=== PATIENT | male | born 1960 | race Caucasian/White ===

== ENCOUNTER → 2018-07-23 | Outpatient (CLI) | payer MEDICARE ==
--- NOTE | 2018-07-23 16:18 | US ---
EXAMINATION TYPE: US abdomen complete DATE OF EXAM: 07/23/2018 COMPARISON: NONE CLINICAL HISTORY: 15-year-old male R10.11 RUQ abdominal pain. Intermittent abdomen pain x 1 year, get s worse after eating TECHNIQUE: Multiple sonographic images of the abdomen are obtained. FINDINGS: EXAM MEASUREMENTS: Liver Length: 18.2 cm Gallbladder Wall: 0.2 cm CBD: 0.9 cm Spleen: 10.4 cm Right Kidney: 11.2 x 4.6 x 5.7 cm Left Kidney: 10.7 x 4.9 x 4.8 cm Pancreas: limited by overlying midline bowel gas Liver: enlarged, attenuating, mildly heterogeneous. The secondary limits assessment for focal lesion . Gallbladder: wnl Evidence for sonographic Archuleta's sign: no CBD: dilated Spleen: wnl Right Kidney: wnl Left Kidney: wnl Upper IVC: wnl Abd Aorta: visualized portions wnl, limited by overlying midline bowel gas IMPRESSION: 1. Mild hepatomegaly (18.2 cm) with at least moderate hepatic steatosis. Correlate with LFTs, lipid p rofile, and patient risk factors. 2. No cholelithiasis or evidence for acute cholecystitis. 3. However, the bile duct is dilated at 9 mm. Correlate with alkaline phosphatase and bilirubin level s to exclude biliary obstruction. ERCP or MRCP if indicated.
== END | disposition home or self-care (01) ==
LOC: RADUSWWP 13:50
PROVIDERS: ATTEND Internal Medicine
DX: K76.0 Fatty (change of) liver, not elsewhere classified (principal); K83.8 Other specified diseases of biliary tract
CPT/HCPCS: 76700

== ENCOUNTER 2018-08-16 09:33 | Day surgery (SDC) | payer MEDICARE ==
[2018-08-14 14:51] VITALS: BMI 29.2
[~2018-08-16 09:33] MED LIST: LACTATED RINGERS 1,000 ML IV SCH; LIDOCAINE 1% 20 ML VIAL (10MG/ML) FOR IV START INTRADERMA PRN; MIDAZOLAM (PF) 2 MG/2 ML VIAL IV PRN
[2018-08-16 10:03] VITALS: TEMP 97.3
[2018-08-16] MEDS ORDERED: PROPOFOL 10 MG/ML 20 ML VIAL IV ONE (10:29)
[2018-08-16 11:07] LABS: Albumin 4.3 g/dL (3.5-5.0); Calcium 9.6 mg/dL (8.4-10.2); Potassium 4.4 mmol/L (3.5-5.1); Total Bilirubin 1.3 mg/dL (0.2-1.3); Total Protein 7.6 g/dL (6.3-8.2)
[2018-08-16 11:13] LABS: Basophils % (A) 0 %; Eosinophils # (A) 0.2 k/uL (0-0.7); Eosinophils % (A) 2 %; HCT 48.9 % (39.0-53.0); HGB 16.1 gm/dL (13.0-17.5); Lymphocytes # (A) 2.6 k/uL (1.0-4.8); Lymphocytes % (A) 27 %; MCHC 32.9 g/dL (31.0-37.0); MCV 94.2 fL (80.0-100.0); Mean Platelet Volume 7.9; Monocytes # (A) 0.5 k/uL (0-1.0); Monocytes % (A) 5 %; Neutrophils # (A) 6.3 k/uL (1.3-7.7); Neutrophils % (A) 65 %; Platelet Count 203 k/uL (150-450); RBC 5.19 m/uL (4.30-5.90); RDW 13.9 % (11.5-15.5); WBC 9.7 k/uL (3.8-10.6)
[2018-08-16 12:13] VITALS: PULSE 47; RESP 16
--- NOTE | 2018-08-16 12:14 | P.PCN ---
Date of Procedure: 08/16/18 Description of Procedure: Brief history: The patient is a 50-year-old male with medical history significant for tobacco abuse who is been seen for EGD and colonoscopy for evaluation of abdominal pain. He reports abdominal pain in the periumbilical region and right lower quadrant which has been occurring for approximately one year. The patient had been seen in the office and started on Bentyl which she reports has improved this pain. He also reported constipation and was started on MiraLAX which she has not needed. The patient had previously undergone evaluation with a computed tomography scan of the abdomen which led to an appendectomy. He also had ultrasound which was negative for cholecystitis or cholelithiasis with mild dilation of the CBD at 9 mm and mild hepatomegaly. Procedure performed: Esophagogastroduodenoscopy with cold biopsy Colonoscopy with polypectomy and cold biopsy Estimated blood loss: Minimal. Preoperative diagnosis: Abdominal pain, patient reports last colonoscopy approximately 10 years ago Anesthesia: MAC Procedure: After informed consent was obtained from the patient was brought into the endoscopy unit and IV sedation was administered by anesthesia under continuous monitoring. Initially upper endoscopy was done. The Olympus GF 190 video endoscope was inserted inserted into the mouth and esophagus intubated without any difficulty and was gradually advanced into the stomach and duodenum and carefully examined. The bulb and second part of the duodenum appeared normal, except for a small area of erythema with superficial erosion in the duodenal bulb which was biopsied. The scope was then withdrawn into the stomach adequately insufflated with air and upon careful examination the antrum and body, cardia and fundus appeared normal, except for mild scattered erythema in the antrum and body suggestive of mild gastritis which was biopsied. The scope was then withdrawn into the esophagus. The GE junction was located at 41 cm to the incisors. It appeared regular with no erythema erosions or ulcerations. Rest of the esophagus appeared normal. Patient tolerated the procedure well. At this time the patient continued to remain sedation. Initial digital rectal examination was normal. Olympus CF 190 video colonoscope was then inserted into the rectum and gradually advanced to the cecum without any difficulty. Careful examination was performed as the scope was gradually being withdrawn. The prep was good. The IC valve appeared erythematous, edematous and friable with suspicion for inflammatory bowel disease, biopsies taken. Random biopsies were taken in the right colon, transverse colon, left colon and rectum. Cold snare polypectomy of a 6 mm cecal polyp was performed. Diminutive polyps were found 1 polyp in the splenic flexure, 2 polyps in the descending colon, 2 polyp in the sigmoid colon and 2 polyps in the rectum ranging from 2 mm to 4 mm and retrieved with cold forcep polypectomy. Patient tolerated the procedure well. Impression: 1. Gastritis, biopsied. Duodenal bulb erythema and superficial erosion, biopsied. 2. Erythematous, edematous and friable IC valve with biopsies taken to rule out IBD. 3. Random biopsies of the right colon, transverse colon, left colon and rectum. 4. Snare polypectomy of cecal polyp. 5. Cold forcep polypectomy of polyps in the splenic flexure, descending colon, sigmoid colon Recommendations: Findings of this examination were discussed with the patient as well as his . Await pathology from biopsies. Patient will need follow-up in the gastroenterology clinic. Patient will need repeat colonoscopy in 1-3 years pending findings from pathology. Further recommendations pending findings from biopsies.
[2018-08-16 12:55] VITALS: BP 122/73
[2018-08-16 16:17] LABS: Iron Saturation 24.41 (15.00-50.00)
[2018-08-16 16:43] LABS: Hepatitis A Antibody IgM Non-Reactive (Non-Reactive); Hepatitis B Core IgM Non-Reactive (Non-Reactive)
[2018-08-17 11:14] LABS: ANA Pattern Centromere
[2018-08-17 12:46] LABS: Ceruloplasmin 28.9 mg/dL (20.0-60.0)
[2018-08-17 14:11] LABS: Liver/Kidney Microsome Antibod 1.3 UNITS (<=20)
== END 2018-08-16 13:06 | disposition home or self-care (01) ==
LOC: ORWHC2ENDO 09:33
PROVIDERS: ATTEND Internal Medicine
DX: K29.50 Unspecified chronic gastritis without bleeding (principal); C18.0 Malignant neoplasm of cecum; D12.0 Benign neoplasm of cecum; D12.4 Benign neoplasm of descending colon; D12.3 Benign neoplasm of transverse colon; K63.5 Polyp of colon; F17.210 Nicotine dependence, cigarettes, uncomplicated; Z88.6 Allergy status to analgesic agent; Z79.899 Other long term (current) drug therapy
CPT/HCPCS: 86376; 88305; 80053; 80074; 82728; 82150; 83540; 83550; 83690; 85025; 83516 ×2; 82103; 82390; 82787; 86038; 86039; 45380; 45385; 43239; J2704

== ENCOUNTER → 2018-10-20 | Outpatient (CLI) | payer MEDICARE ==
--- NOTE | 2018-10-24 11:41 | PE ---
Nuclear medicine PET/CT HISTORY: Colon carcinoma, subsequent Patient received 12.1 mCi F-18 FDG intravenously in delayed scanning was performed from the skull bas e to the mid thighs. Localization and attenuation correction CT scan was performed. Patient's prior CT scans are available for comparison. Neck and chest: There is no evident lung mass. No mediastinal, axillary, hilar, or cervical adenopath y. No suspicious hypermetabolic uptake. Minimal inflammatory change noted in the right maxillary sinu s. Abdomen pelvis: Postop changes are present. There is no retroperitoneal mass or adenopathy. No eviden t liver mass. Liver shows possible low-attenuation, consider hepatic steatosis. Atheromatous changes are present within the aorta. Postop changes are noted to the colon. Prostatic calcifications are pre sent. No pelvic adenopathy. Urinary bladder is normal. Osseous structures: Probable benign focus of calcification present anterior lateral to the left ilium anterior aspect, possible old avulsion injury. Degenerative disc changes, facet arthropathy noted in the lumbar spine. IMPRESSION: Postop changes. No suspicious hypermetabolic uptake is evident.
== END ==
LOC: RADPETMAIN 07:52
PROVIDERS: ATTEND Internal Medicine Hematology & Oncology
DX: C18.2 Malignant neoplasm of ascending colon (principal); Z98.890 Other specified postprocedural states
CPT/HCPCS: 78815; A9552

== ENCOUNTER 2019-04-01 23:04 | Inpatient (IN) | payer MEDICARE ==
[2019-04-01] MEDS ORDERED: SODIUM CHLORIDE 0.9% 1,000 ML IV STA ×2 (23:53)
[2019-04-01] MEDS ORDERED: SODIUM CHLORIDE 0.9% 1,000 ML IV ONE (23:53)
[2019-04-01] MEDS ORDERED: ONDANSETRON 4 MG/2 ML VIAL IVP STA (23:53)
[2019-04-01] MEDS ORDERED: PANTOPRAZOLE 40 MG/10 ML VIAL IVP STA (23:53)
[2019-04-01] MEDS ORDERED: MORPHINE SULFATE 4 MG/ML SYRINGE IV STA (23:53)
--- NOTE | 2019-04-02 00:04 | ED ---
Abdominal Pain HPI - General Chief Complaint: Abdominal Pain Stated Complaint: abd pain Time Seen by Provider: 04/01/19 23:20 Source: patient, EMS Mode of arrival: EMS Limitations: no limitations - History of Present Illness Initial Comments: This is a 50-year-old male the ER for evaluation patient resents today for evaluation regards to abdominal pain, except in transfer for evaluation regarding persistent right upper quadrant abdominal pain.,. Medical history significant for recent colon resection secondary to colon cancer as well as appendectomy. Patient still complaining of right-sided pain right upper quadrant pain nausea no vomiting. Symptoms are progressively worsening for last 3 days. Patient has no recent fevers cough or congestion otherwise no recent travel history no family members with similar complaints. No prior history of gallbladder disease no history of pancreatic illness. MD Complaint: abdominal pain -: days(s) (3) Location: RUQ, RLQ Radiation: R flank Migration to: no migration Severity: moderate Severity scale (1-10): 7 Quality: stabbing, aching Consistency: constant Improves With: nothing Worsens With: nothing Associated Symptoms: nausea - Related Data Home Medications Medication Instructions Recorded Confirmed No Known Home Medications 04/01/19 04/01/19 Allergies Allergy/AdvReac Type Severity Reaction Status Date / Time ibuprofen Allergy Rash/Hives Verified 04/01/19 23:21 Review of Systems ROS Statement: Those systems with pertinent positive or pertinent negative responses have been documented in the HPI. ROS Other: All systems not noted in ROS Statement are negative. 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, enlarged liver History of Any Multi-Drug Resistant Organisms: None Reported Past Surgical History: Appendectomy, Orthopedic Surgery Additional Past Surgical History / Comment(s): surgery to remove melanoma, rt shoulder surgery x2 rotator cuff, rt orbit "plastic piece put in ", Past Anesthesia/Blood Transfusion Reactions: No Reported Reaction Past Psychological History: Anxiety, Bipolar Smoking Status: Current every day smoker - Past Family History Father Family Medical History: Diabetes Mellitus Additional Family Medical History / Comment(s): Hx MRSA Mother Family Medical History: Cancer Additional Family Medical History / Comment(s): brain General Exam Limitations: no limitations General appearance: alert, in no apparent distress Head exam: Present: atraumatic, normocephalic, normal inspection Eye exam: Present: normal appearance, EOMI. Absent: scleral icterus, conjunctival injection, periorbital swelling ENT exam: Present: normal exam, mucous membranes moist Neck exam: Present: normal inspection. Absent: tenderness, meningismus, lymphadenopathy Respiratory exam: Present: normal lung sounds bilaterally. Absent: respiratory distress, wheezes, rales, rhonchi, stridor Cardiovascular Exam: Present: regular rate, normal rhythm, normal heart sounds. Absent: systolic murmur, diastolic murmur, rubs, gallop, clicks GI/Abdominal exam: Present: soft, tenderness (Right upper quadrant), normal bowel sounds. Absent: distended, guarding, rebound, rigid Extremities exam: Present: normal inspection, full ROM, normal capillary refill. Absent: tenderness, pedal edema, joint swelling, calf tenderness Back exam: Present: normal inspection Neurological exam: Present: alert, oriented X3, CN II-XII intact Psychiatric exam: Present: normal affect, normal mood Skin exam: Present: warm, dry, intact, normal color. Absent: rash Course Vital Signs 04/01/19 23:18 Temperature 99.1 F Pulse Rate 59 L Respiratory 16 Rate Blood Pressure 126/92 O2 Sat by Pulse 95 Oximetry - Reevaluation(s) Reevaluation #1: 04/02/19 00:03 Medical records reviewed 04/02/19 00:03 Transfer paperwork is reviewed Medical Decision Making - Medical Decision Making 18 male except in transfer after workup at [facility] was concern for gallbladder illness. Patient did not of ultrasound negative computed tomography scan, patient will be admitted for ultrasound of gallbladder and further evaluation of abdominal pain Disposition Clinical Impression: Abdominal pain Narrative: RUQ abd pain Disposition: ADMITTED IP TO THIS HOSP Condition: Good Is patient prescribed a controlled substance at d/c from ED?: No Referrals: Lupis Seay MD [Primary Care Provider] - 1-2 days
[2019-04-02 00:33] LABS: Basophils # (A) 0.1 k/uL (0-0.2); Basophils % (A) 1 %; Eosinophils # (A) 0.2 k/uL (0-0.7); Eosinophils % (A) 1 %; HCT 44.9 % (39.0-53.0); HGB 15.9 gm/dL (13.0-17.5); Lymphocytes # (A) 2.5 k/uL (1.0-4.8); Lymphocytes % (A) 17 %; MCH 32.6 pg (25.0-35.0); MCHC 35.4 g/dL (31.0-37.0); Mean Platelet Volume 7.1; Monocytes # (A) 0.9 k/uL (0-1.0); Monocytes % (A) 6 %; Neutrophils # (A) 11.1 k/uL (1.3-7.7); Neutrophils % (A) 75 %; Platelet Count 153 k/uL (150-450); RBC 4.89 m/uL (4.30-5.90); RDW 13.7 % (11.5-15.5); WBC 14.9 k/uL (3.8-10.6)
[2019-04-02 00:42] LABS: ALT 29 U/L (21-72); AST 23 U/L (17-59); African American GFR (CKD) >90 (>60 ml/min/1.73 sqM); Albumin 4.3 g/dL (3.5-5.0); Alkaline Phosphatase 74 U/L (38-126); Amylase 67 U/L (30-110); Anion Gap 13 mmol/L; Blood Urea Nitrogen 13 mg/dL (9-20); Calcium 9.3 mg/dL (8.4-10.2); Carbon Dioxide 20 mmol/L (22-30); Chloride 106 mmol/L (98-107); Glucose 103 mg/dL (74-99); Non-African American GFR(CKD) 86 (>60 ml/min/1.73 sqM); Potassium 4.3 mmol/L (3.5-5.1); Sodium 139 mmol/L (137-145); Total Bilirubin 1.8 mg/dL (0.2-1.3); Total Protein 7.7 g/dL (6.3-8.2)
[2019-04-02 00:50] LABS: INR 0.9 (<1.2); Partial Thromboplastin Time 28.9 sec (22.0-30.0); Prothrombin Time 9.8 sec (9.0-12.0)
[2019-04-02] MEDS ORDERED: HYDROmorphone 1 MG/ML 1 ML SYRINGE IVP PRN (07:26)
--- NOTE | 2019-04-02 08:06 | US ---
EXAMINATION TYPE: US gallbladder DATE OF EXAM: 04/02/2019 COMPARISON: NONE CLINICAL HISTORY: pain. EXAM MEASUREMENTS: Liver Length: 15.5 cm Gallbladder Wall: 0.2 cm CBD: 0.4 cm Right Kidney: 11.7 x 4.9 x 5.3 cm Extensive overlying bowel gas. Pancreas: Obscured by bowel gas Liver: Increased attenuation, left lobe obscured by bowel gas, probable focal fatty sparing adjacent to gallbladder Gallbladder: sludge Evidence for sonographic Archuleta's sign: no CBD: wnl Right Kidney: wnl IMPRESSION: 1. Gallbladder sludge with no evidence of wall thickening or cholelithiasis. 2. Correlate for hepatic steatosis or hepatitis. Area of increased echogenicity adjacent the gallblad aneta most likely the basis of focal fatty sparing..
[2019-04-02] MEDS: SODIUM CHLORIDE 0.9% 1,000 ML IV SCH ×2 (11:31→23:52)
[2019-04-02] MEDS: PANTOPRAZOLE 40 MG/10 ML VIAL IVP SCH (11:33)
[2019-04-02] MEDS: KETOROLAC 30 MG/ML 1 ML VIAL IVP PRN (11:33)
[2019-04-02] MEDS: LACTULOSE 20 GM/30 ML CUP PO PRN ×2 (11:35→23:52)
--- NOTE | 2019-04-02 11:48 | P.HPIM ---
History of Present Illness patient is pleasant 50-year-old male came in with complains of the right lower quadrant abdominal pain has been going on for 4 days patient denied any diarrhea nausea vomiting. Patient pain is a sharp severe right lower quadrant patient had an appendectomy in the past and patient is a colon cancer with colon resection in the past. Ultrasound of the abdomen was show done which showed gallbladder sludge there is a CAT scan from another facility unfortunately I am unable to open of the images will send him to the radiology department and see what it shows. Patient is complaining of constipation for about the 5 days predominantly as patient is not eating the patient is not passing gas at although patient does have sluggish bowel sounds patient has abdominal pain even before he is constipated as per the patient. Patient denied any fever chills. General surgery is planning on cholecystectomy although patient doesn't have any right upper quadrant tenderness and Archuleta's sign is negative. Review of Systems REVIEW OF SYSTEMS: CONSTITUTIONAL: No fever, no malaise, no fatigue. HEENT: No recent visual problems or hearing problems. Denied any sore throat. CARDIOVASCULAR: No chest pain, orthopnea, PND, no palpitations, no syncope. PULMONARY: No shortness of breath, no cough, no hemoptysis. GASTROINTESTINAL: as mentioned in HPI NEUROLOGICAL: No headaches, no weakness, no numbness. HEMATOLOGICAL: Denies any bleeding or petechiae. GENITOURINARY: Denies any burning micturition, frequency, or urgency. MUSCULOSKELETAL/RHEUMATOLOGICAL: Denies any joint pain, swelling, or any muscle pain. ENDOCRINE: Denies any polyuria or polydipsia. The rest of the 14-point review of systems is negative. 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, enlarged liver History of Any Multi-Drug Resistant Organisms: None Reported Past Surgical History: Appendectomy, Orthopedic Surgery Additional Past Surgical History / Comment(s): surgery to remove melanoma, rt shoulder surgery x2 rotator cuff, rt orbit "plastic piece put in ", removed 18 inches of the colon August Past Anesthesia/Blood Transfusion Reactions: No Reported Reaction Past Psychological History: Anxiety, Bipolar Smoking Status: Current every day smoker Past Alcohol Use History: Rare Additional Past Alcohol Use History / Comment(s): smoker since age 12 1ppd Past Drug Use History: None Reported - Past Family History Father Family Medical History: Diabetes Mellitus Additional Family Medical History / Comment(s): Hx MRSA Mother Family Medical History: Cancer Additional Family Medical History / Comment(s): brain Medications and Allergies Home Medications Medication Instructions Recorded Confirmed Type No Known Home Medications 04/01/19 04/01/19 History Allergies Allergy/AdvReac Type Severity Reaction Status Date / Time ibuprofen Allergy Rash/Hives Verified 04/01/19 23:21 Physical Exam Vitals: Vital Signs Temp Pulse Pulse Resp BP BP Pulse Ox 04/02/19 07:45 98.0 F 65 16 119/70 92 L 04/02/19 02:30 98.6 F 64 115/68 93 L 04/02/19 01:25 98.3 F 63 18 133/70 93 L 04/02/19 01:01 16 04/02/19 00:26 62 17 119/79 93 L 04/01/19 23:18 99.1 F 59 L 16 126/92 95 Intake and Output 04/01/19 04/02/19 04/02/19 22:59 06:59 14:59 Other: Voiding Method Toilet Toilet # Voids 1 Weight 88.451 kg PHYSICAL EXAMINATION: GENERAL: The patient is alert and oriented x3, not in any acute distress. Well developed, well nourished. HEENT: Pupils are round and equally reacting to light. EOMI. No scleral icterus. No conjunctival pallor. Normocephalic, atraumatic. No pharyngeal erythema. No thyromegaly. CARDIOVASCULAR: S1 and S2 present. No murmurs, rubs, or gallops. PULMONARY: Chest is clear to auscultation, no wheezing or crackles. ABDOMEN: Soft, patient does have tenderness in the right lower quadrant and patient has a lot of pain when he tries to bend his legs MUSCULOSKELETAL: No joint swelling or deformity. EXTREMITIES: No cyanosis, clubbing, or pedal edema. NEUROLOGICAL: Gross neurological examination did not reveal any focal deficits. SKIN: No rashes. Results CBC & Chem 7: 04/02/19 00:10 04/02/19 00:10 Labs: Abnormal Lab Results - Last 24 Hours (Table) 04/02/19 04/02/19 Range/Units 00:10 00:10 WBC 14.9 H (3.8-10.6) k/uL Neutrophils # 11.1 H (1.3-7.7) k/uL Carbon Dioxide 20 L (22-30) mmol/L Glucose 103 H (74-99) mg/dL Total Bilirubin 1.8 H (0.2-1.3) mg/dL Thrombosis Risk Factor Assmnt - Choose All That Apply Each Factor Represents 1 point: Age 41-60 years Each Risk Factor Represents 2 Points: Malignancy Thrombosis Risk Factor Assessment Total Risk Factor Score: 3 Thrombosis Risk Factor Assessment Level: Moderate Risk Assessment and Plan Plan: -right lower quadrant abdominal pain: patient had biliary sludge and it was believed patient may have cholecystitis general surgery evaluated the patient and planning on cholecystectomy. Although his clinical signs and symptoms are not really consistent with cholecystitis will try and get the report on the CAT scan that was done at another facility. Patient will continued on IV fluids pain medications will be switched to Toradol because of his constipation will use lactulose for his constipation -Constipation lactulose for constipation Dilaudid will risk and your patient will be started on Toradol patient does have some mild ALLERGIC reaction to ibuprofen will monitor for any ALLERGIC reaction to Toradol. -leukocytosis can be reactive or secondary to gallbladder disease as mentioned above -Anion gap metabolic acidosis may have had lactic acidosis since patient is receiving IV fluids now I will not order any lactic acid level at this time. -DVT prophylaxis ambulation, GI prophylaxis with Protonix
--- NOTE | 2019-04-02 13:28 | P.PN ---
Subjective Progress Note Date: 04/02/19 CHIEF COMPLAINT: abdominal pain HISTORY OF PRESENT ILLNESS: 58 year old male who was transferred from [facility] secondary to abdominal pain. Patient reports history of bowel resection 5 months ago at [facility]. He states oncology recommended chemotherapy but he refused. He is supposed to follow up in about a month with his surgeon. He reports pain to the right lower quadrant. Denies nausea or vomiting. PAST MEDICAL HISTORY: See list. PAST SURGICAL HISTORY: See list. SOCIAL HISTORY: No illicit drug use. REVIEW OF SYSTEMS: CONSTITUTIONAL: Denies fever or chills. HEENT: Denies blurred vision, vision changes, or eye pain. Denies hemoptysis CARDIOVASCULAR: Denies chest pain or pressure. RESPIRATORY: No shortness of breath. GASTROINTESTINAL: Refer to [facility] for pertinent findings HEMATOLOGIC: Denies bleeding disorders. GENITOURINARY: Denies any blood in urine. SKIN: Denies pruitis. Denies rash. PHYSICAL EXAM: VITAL SIGNS: Reviewed. GENERAL: Well-developed in no acute distress. HEENT: No sclera icterus. Extraocular movements grossly intact. Moist buccal mucosa. Head is atraumatic, normocephalic. ABDOMEN: Soft. Nondistended. Tenderness with palpation to right lower quadrant. NEUROLOGIC: Alert and oriented. Cranial nerves II through XII grossly intact. LABORATORY DATA: WBC 14.9. Hemoglobin 15.[address] scan completed at outside facility reveals inflammatory changes of the omental fat in the right upper quadrant. Increasing fluid in the right pericolic gutter compared to previous scan. Increased inflammatory changes in the fat. 2. Gallbladder US: gallbladder sludge ASSESSMENT: 1. Abdominal pain, US revealing gallbladder sludge, CT reveals inflammatory changes 2. Recent history of colon resection secondary to colon cancer 3. History of appendectomy PLAN: Dr. [facility] evaluated patient at the bedside. Plan is for laparoscopic cholecystectomy tomorrow. Clear liquid diet today. Nothing by mouth at midnight. Nurse practitioner note has been reviewed by physician. Signing provider agrees with the documented findings, assessment, and plan of care. Objective - Vital Signs Vital signs: Vital Signs Temp 98.0 F 04/02/19 07:45 Pulse 65 04/02/19 07:45 Resp 16 04/02/19 07:45 BP 119/70 04/02/19 07:45 Pulse Ox 92 L 04/02/19 07:45 Intake & Output 04/01/19 04/02/19 04/02/19 18:59 06:59 18:59 Weight 88.451 kg Other: Voiding Method Toilet Toilet # Voids 1 - Labs CBC & Chem 7: 04/02/19 00:10 04/02/19 00:10 Labs: Abnormal Lab Results - Last 24 Hours (Table) 04/02/19 04/02/19 Range/Units 00:10 00:10 WBC 14.9 H (3.8-10.6) k/uL Neutrophils # 11.1 H (1.3-7.7) k/uL Carbon Dioxide 20 L (22-30) mmol/L Glucose 103 H (74-99) mg/dL Total Bilirubin 1.8 H (0.2-1.3) mg/dL
[2019-04-02] MEDS ORDERED: NA PHOS,M-B/NA PHOS,DI-BA 133 ML ENEMA RECTAL STA (18:53)
[2019-04-02] MEDS ORDERED: ONDANSETRON 4 MG/2 ML VIAL IVP PRN (19:53)
[2019-04-02] MEDS: ZOLPIDEM 5 MG TAB PO PRN (21:33)
[2019-04-03 07:47] LABS: Albumin 3.5 g/dL (3.5-5.0); Calcium 8.5 mg/dL (8.4-10.2); Potassium 4.4 mmol/L (3.5-5.1); Total Bilirubin 1.7 mg/dL (0.2-1.3); Total Protein 6.4 g/dL (6.3-8.2)
[2019-04-03 08:06] LABS: HCT 42.7 % (39.0-53.0); HGB 15.1 gm/dL (13.0-17.5); MCH 33.3 pg (25.0-35.0); MCHC 35.3 g/dL (31.0-37.0); MCV 94.4 fL (80.0-100.0); Mean Platelet Volume 7.2; Platelet Count 170 k/uL (150-450); RBC 4.52 m/uL (4.30-5.90); RDW 13.7 % (11.5-15.5); WBC 17.3 k/uL (3.8-10.6)
[2019-04-03] MEDS: PANTOPRAZOLE 40 MG/10 ML VIAL IVP SCH (09:16)
--- NOTE | 2019-04-03 13:16 | P.PN ---
Subjective Progress Note Date: 04/03/19 Principal diagnosis: patient is pleasant 50-year-old male came in with complains of the right lower quadrant abdominal pain has been going on for 4 days patient denied any diarrhea nausea vomiting. Patient pain is a sharp severe right lower quadrant patient had an appendectomy in the past and patient is a colon cancer with colon resection in the past. Ultrasound of the abdomen was show done which showed gallbladder sludge there is a CAT scan from another facility unfortunately I am unable to open of the images will send him to the radiology department and see what it shows. Patient is complaining of constipation for about the 5 days predominantly as patient is not eating the patient is not passing gas at although patient does have sluggish bowel sounds patient has abdominal pain even before he is constipated as per the patient. Patient denied any fever chills. General surgery is planning on cholecystectomy although patient doesn't have any right upper quadrant tenderness and Archuleta's sign is negative. 04/03/2019 Patient is lying in bed in no acute distress talking on the phone with his family. Patient was given a lactulose and states that it made his stomach pain worse and was requesting a Fleet enema. Patient states that he feels much better after the enema and was passing gas and able to remove some of the bloating in his stomach that was causing discomfort. She states that he did have a bowel movement this morning. Patient denies any shortness of breath, chest pain, or palpitations at this time. Patient is afebrile. Patient is currently nothing by mouth and awaiting for surgery this afternoon to have a cholecystectomy. Will continue to monitor closely. Objective - Vital Signs Vital signs: Vital Signs Temp 98.7 F 04/03/19 07:00 Pulse 64 04/03/19 08:00 Resp 16 04/03/19 08:00 BP 108/66 04/03/19 07:00 Pulse Ox 93 L 04/03/19 07:00 Intake & Output 04/02/19 04/03/19 04/03/19 18:59 06:59 18:59 Intake Total 1150 Output Total 50 Balance 1150 -50 Intake: Intake, IV Titration 700 Amount Sodium Chloride 0.9% 1, 700 000 ml @ 100 mls/hr IV . Q10H [facility] Rx#:[id number] Oral 450 Output: Emesis 50 Other: Voiding Method Toilet Toilet Toilet # Voids 2 # Bowel Movements 1 - Exam GENERAL: The patient is alert and oriented x3, not in any acute distress. Well developed, well nourished. Vital signs are stable. HEENT: Pupils are round and equally reacting to light. EOMI. No scleral icterus. No conjunctival pallor. Normocephalic, atraumatic. No pharyngeal erythema. No thyromegaly. CARDIOVASCULAR: S1 and S2 present. No murmurs, rubs, or gallops. PULMONARY: Chest is clear to auscultation, no wheezing or crackles. ABDOMEN: Soft, mild tenderness in the right lower quadrant MUSCULOSKELETAL: No joint swelling or deformity. EXTREMITIES: No cyanosis, clubbing, or pedal edema. NEUROLOGICAL: Gross neurological examination did not reveal any focal deficits. SKIN: No rashes. - Labs CBC & Chem 7: 04/03/19 07:00 04/03/19 07:00 Labs: Abnormal Lab Results - Last 24 Hours (Table) 04/03/19 04/03/19 Range/Units 07:00 07:00 WBC 17.3 H (3.8-10.6) k/uL Glucose 112 H (74-99) mg/dL Total Bilirubin 1.7 H (0.2-1.3) mg/dL Assessment and Plan Assessment: -right lower quadrant abdominal pain: patient had biliary sludge and it was believed patient may have cholecystitis general surgery evaluated the patient and planning on cholecystectomy. Although his clinical signs and symptoms are not really consistent with cholecystitis will try and get the report on the CAT scan that was done at another facility. Patient will continued on IV fluids pain medications will be switched to Toradol because of his constipation will use lactulose for his constipation -Constipation lactulose for constipation, patient will be started on Toradol patient does have some mild ALLERGIC reaction to ibuprofen will monitor for any ALLERGIC reaction to Toradol. -leukocytosis can be reactive or secondary to gallbladder disease as mentioned above -Anion gap metabolic acidosis may have had lactic acidosis since patient is receiving IV fluids now I will not order any lactic acid level at this time. -DVT prophylaxis ambulation GI prophylaxis with Protonix Recommendations and discussion: Recommend continue current medications, management, and symptomatic treatment. Patient is scheduled to undergo a cholecystectomy today and is currently nothing by mouth. Patient was given lactulose yesterday one time and refuses any further stating that it was irritating his stomach and was requesting a fleets enema. Patient states that his stomach feels much better and is able to pass gas and had a bowel movement this morning. Will continue to monitor. Guarded prognosis. Further recommendations to follow. Possible discharge in 24-48 hours.
[2019-04-03] MEDS ORDERED: IV FLUID CONTINUATION 1,000 ML IV ONE (14:17)
[2019-04-03] MEDS ORDERED: fentaNYL (PF) 50 MCG/ML 2 ML AMP IV ONE (14:30)
[2019-04-03] MEDS ORDERED: ONDANSETRON 4 MG/2 ML VIAL IVP ONE (14:35)
[2019-04-03] MEDS ORDERED: DEXAMETHASONE SOD PHOSPHATE 10 MG/ML 1 ML VIAL IV ONE (14:35)
[2019-04-03] MEDS ORDERED: HEPARIN SODIUM,PORCINE 5,000 UNIT/ML 1 ML VIAL SQ ONE (14:37)
[2019-04-03] MEDS ORDERED: BUPIVACAINE (PF) 0.25% 30 ML VIAL SQ ONE (14:54)
[2019-04-03] MEDS ORDERED: MIDAZOLAM 2 MG/2 ML VIAL ONE (14:56)
[2019-04-03] MEDS ORDERED: LIDOCAINE 1% INJ 10MG/ML (20 ML MDV) ONE (14:56)
[2019-04-03] MEDS ORDERED: HYDROmorphone (PF) 1 MG/ML ONE (14:56)
[2019-04-03] MEDS ORDERED: ROCURONIUM BROMIDE 10 MG/ML 10 ML VIAL IV ONE (14:56)
[2019-04-03] MEDS ORDERED: SUCCINYLCHOLINE CHLORIDE 100 MG/5 ML SYR IV ONE (14:56)
[2019-04-03] MEDS ORDERED: fentaNYL (PF) 50 MCG/ML 2 ML AMP ONE (14:56)
[2019-04-03] MEDS ORDERED: GLYCOPYRROLATE 0.2 MG/ML 2 ML VIAL ONE (14:56)
[2019-04-03] MEDS ORDERED: NEOSTIGMINE 1 MG/ML 10 ML VIAL ONE (14:56)
[2019-04-03] MEDS ORDERED: PROPOFOL 10 MG/ML 20 ML VIAL IV ONE (14:56)
[2019-04-03] MEDS ORDERED: ceFAZolin 1,000 MG VIAL IVPB ONE (15:14)
[2019-04-03] MEDS ORDERED: LACTATED RINGERS 1,000 ML IV ONE (15:43)
--- NOTE | 2019-04-03 15:49 | P.OP ---
Date of Procedure: 04/03/19 Preoperative Diagnosis: Cholelithiasis Postoperative Diagnosis: Infarcted omentum Procedure(s) Performed: Partial omentectomy Anesthesia: [facility] Surgeon: Luther Palma Estimated Blood Loss (ml): 10 Pathology: other (omentum) Condition: stable Disposition: PACU Description of Procedure: The patient's placed on the operating table in the supine position. He received general anesthesia. His abdomen was prepped and draped usual sterile fashion. The skin incision sites were anesthetized 1% local Xylocaine. Using a 15 blade the skin was incised in the infra umbilical position and then using a Romeo clamp the umbilicus is grasped and then a Veress needles placed into the enedina nicole cavity. Position of the Veress needle was confirmed with positive drop test. After adequate insufflation the laparoscope placed. Cavity. Upon inserting the laparoscope there was evidence of serosanguineous ascites there was a large portion of the omentum which was infarcted. At this point a another 10 mm trocar was placed into the pelvic cavity the epigastric position. Approximate 400 mL of dang colored ascites was aspirated. At this point the gallbladder was visualized and the did not appear to be significantly inflamed. Due to the large portion of omentum that was infarcted it was decided to convert to open procedure. The trochars withdrawn. A midline skin incision was made in the left cautery the abdominal wall was divided between Cavity another 200 mL of dang colored fluid was aspirated. The omentum had some small bowel stuck to it this was dissected free with blunt dissection the infarcted omentum measured prostate 15 x 15 cm. It was ischemic with necrosis. Using the Harmonic scissors the omentectomy was performed. The specimens of pathology. The abdomen was irrigated still bleeding seen. The fascia was closed with looped #1 PDS suture. Skin was closed octaviano. Patient top she will was sent to recovery room and still position.
[2019-04-03] MEDS ORDERED: MORPHINE SULFATE 2 MG/ML SYRINGE IVP PRN (15:50)
[2019-04-03] MEDS ORDERED: HYDROmorphone 1 MG/ML 1 ML SYRINGE IVP ONE ×2 (16:13→16:20)
[2019-04-03] MEDS: KETOROLAC 30 MG/ML 1 ML VIAL IVP PRN (17:24)
[2019-04-03] MEDS: SODIUM CHLORIDE 0.9% 1,000 ML IV SCH (19:21)
[2019-04-03 23:01] VITALS: RESP 16
[2019-04-04] MEDS: KETOROLAC 30 MG/ML 1 ML VIAL IVP PRN ×2 (02:00→08:17)
[2019-04-04] MEDS: ZOLPIDEM 5 MG TAB PO PRN (02:01)
[2019-04-04 02:11] VITALS: PULSE 63
[2019-04-04] MEDS: SODIUM CHLORIDE 0.9% 1,000 ML IV SCH (02:41)
[2019-04-04 08:00] VITALS: BP 116/73; TEMP 98.3
[2019-04-04] MEDS: PANTOPRAZOLE 40 MG/10 ML VIAL IVP SCH (08:10)
--- NOTE | 2019-04-04 11:37 | P.PN ---
Progress Note - Text Progress Note Date: 04/04/19 The patient is postoperative day 1 from partial omentectomy. He is doing quite well. He is tolerating a diet. On exam his vital signs are stable. His abdomen soft. His incision site is clean dry and intact. Patiently discharged home today he'll follow-up with myself next week.
--- NOTE | 2019-04-04 14:08 | P.PN ---
Subjective Progress Note Date: 04/04/19 Principal diagnosis: patient is pleasant 50-year-old male came in with complains of the right lower quadrant abdominal pain has been going on for 4 days patient denied any diarrhea nausea vomiting. Patient pain is a sharp severe right lower quadrant patient had an appendectomy in the past and patient is a colon cancer with colon resection in the past. Ultrasound of the abdomen was show done which showed gallbladder sludge there is a CAT scan from another facility unfortunately I am unable to open of the images will send him to the radiology department and see what it shows. Patient is complaining of constipation for about the 5 days predominantly as patient is not eating the patient is not passing gas at although patient does have sluggish bowel sounds patient has abdominal pain even before he is constipated as per the patient. Patient denied any fever chills. General surgery is planning on cholecystectomy although patient doesn't have any right upper quadrant tenderness and Archuleta's sign is negative. 04/03/2019 Patient is lying in bed in no acute distress talking on the phone with his family. Patient was given a lactulose and states that it made his stomach pain worse and was requesting a Fleet enema. Patient states that he feels much better after the enema and was passing gas and able to remove some of the bloating in his stomach that was causing discomfort. She states that he did have a bowel movement this morning. Patient denies any shortness of breath, chest pain, or palpitations at this time. Patient is afebrile. Patient is currently nothing by mouth and awaiting for surgery this afternoon to have a cholecystectomy. Will continue to monitor closely. 04/04/2019 Patient is dressed and sitting at the side of the bed in no acute distress awaiting to go home today. Patient underwent partial omentectomy yesterday with Dr. Palma at the visualized the gallbladder did not appear significantly inflamed but there was a large area of infarction of the omentum with ischemia and necrosis. Patient would like to go home today. Patient denies any chest pain, shortness of breath, or palpitations at this time. Patient is afebrile. Patient states that he is passing gas and still having bowel movements. Patient was on ice chips and popsicles and tolerating. Guarded prognosis. Objective - Vital Signs Vital signs: Vital Signs Temp 98.3 F 04/04/19 07:00 Pulse 63 04/04/19 07:00 Resp 16 04/04/19 07:16 BP 116/73 04/04/19 07:00 Pulse Ox 92 L 04/04/19 07:00 Intake & Output 04/03/19 04/04/19 04/04/19 18:59 06:59 18:59 Intake Total 2049 Output Total 30 Balance 2019 Intake: IV 1350 Intake, IV Titration 700 Amount Sodium Chloride 0.9% 1, 700 000 ml @ 100 mls/hr IV . Q10H [facility] Rx#:[id number] Output: Estimated Blood Loss 30 Other: Voiding Method Toilet Toilet Toilet # Voids 1 - Exam GENERAL: The patient is alert and oriented x3, not in any acute distress. Well developed, well nourished. Vital signs are stable. HEENT: Pupils are round and equally reacting to light. EOMI. No scleral icterus. No conjunctival pallor. Normocephalic, atraumatic. No pharyngeal erythema. No thyromegaly. CARDIOVASCULAR: S1 and S2 present. No murmurs, rubs, or gallops. PULMONARY: Chest is clear to auscultation, no wheezing or crackles. ABDOMEN: Soft, nontender. MUSCULOSKELETAL: No joint swelling or deformity. EXTREMITIES: No cyanosis, clubbing, or pedal edema. NEUROLOGICAL: Gross neurological examination did not reveal any focal deficits. SKIN: No rashes. - Labs CBC & Chem 7: 04/03/19 07:00 04/03/19 07:00 Assessment and Plan Assessment: -right lower quadrant abdominal pain: patient had biliary sludge and it was believed patient may have cholecystitis general surgery evaluated the patient and planning on cholecystectomy. Although his clinical signs and symptoms are not really consistent with cholecystitis will try and get the report on the CAT scan that was done at another facility. Patient will continued on IV fluids pain medications will be switched to Toradol because of his constipation will use lactulose for his constipation -Constipation lactulose for constipation, patient will be started on Toradol patient does have some mild ALLERGIC reaction to ibuprofen will monitor for any ALLERGIC reaction to Toradol. -leukocytosis can be reactive or secondary to gallbladder disease as mentioned above -Anion gap metabolic acidosis may have had lactic acidosis since patient is receiving IV fluids now I will not order any lactic acid level at this time. -DVT prophylaxis ambulation GI prophylaxis with Protonix Recommendations and discussion: Recommend continue current medications, management, and symptomatic treatment. Patient underwent partial laminectomy surgery yesterday. Patient is tolerating ice chips and popsicles. Patient states he is passing gas and having bowel movements. Patient states he will be going home today. Will continue to monitor. Guarded prognosis. Further recommendations to follow. Patient is being discharged today.
== END 2019-04-04 12:06 | disposition home or self-care (01) | DRG 357 ==
LOC: EC 23:04 → 4SSUR 23:53 → OBSVTOIN 04-02 14:24
PROVIDERS: ADMIT Hospitalist; ATTEND Hospitalist
PROC: 0DBU0ZZ Excision of Omentum, Open Approach (ICD-10-PCS; principal; 2019-04-03 14:35)
DX: K55.069 Acute infarction of intestine, part and extent unspecified (principal); E87.2 Acidosis; R16.0 Hepatomegaly, not elsewhere classified; D72.829 Elevated white blood cell count, unspecified; F17.200 Nicotine dependence, unspecified, uncomplicated; F31.9 Bipolar disorder, unspecified; F41.9 Anxiety disorder, unspecified; K59.00 Constipation, unspecified; Z88.6 Allergy status to analgesic agent; Z85.820 Personal history of malignant melanoma of skin; Z90.49 Acquired absence of other specified parts of digestive tract; Z83.3 Family history of diabetes mellitus; Z80.9 Family history of malignant neoplasm, unspecified
CPT/HCPCS: 76705; 80053; 82150; 83605; 83690; 85025; 85027; 85610; 85730; 88305; 96374; 96375; 99285

== ENCOUNTER → 2020-11-25 | Outpatient (CLI) | payer MEDICARE ==
--- NOTE | 2020-11-25 09:50 | XR ---
Right shoulder HISTORY: Pain 3 views of the right shoulder There is remodeling of the humeral head and bony glenoid, subchondral sclerosis, marginal spurring is present. There is joint space loss. Alignment and bone mineralization maintained. No fracture or dis location. There is remodeling at the acromioclavicular joint, correlate for history of trauma, surgic al change, distal clavicle appears tapered and there is an ossific density possibly related to osteoa rthritis. 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
== END | disposition home or self-care (01) ==
LOC: RADXRYALE 09:09
PROVIDERS: ATTEND Internal Medicine
DX: M19.011 Primary osteoarthritis, right shoulder (principal)

== ENCOUNTER → 2020-12-16 | Outpatient (CLI) | payer MEDICARE ==
--- NOTE | 2020-12-16 14:07 | XR ---
KUB HISTORY: Hematuria, right upper quadrant pain Frontal KUB and 2 images, comparison to prior exam, CT 04/01/2019 Question a calcification superimposed over the transverse process of the L2 vertebral body on the rig ht measuring approximately 15 mm. Probable vascular calcifications within the pelvis. Lung bases are clear. Right hemidiaphragm mildly elevated. There is a slight spinal curvature, degenerative disc linn nge present in the lumbar spine. No evident bowel obstruction or pneumoperitoneum. IMPRESSION: Question calcification as described, may represent renal pelvis calcification, CT scan co uld be performed for better evaluation
== END | disposition home or self-care (01) ==
LOC: RADXRYALE 10:22
PROVIDERS: ATTEND Internal Medicine
DX: R31.9 Hematuria, unspecified (principal); R10.11 Right upper quadrant pain
CPT/HCPCS: 74018

== ENCOUNTER → 2021-02-19 | Outpatient (CLI) | payer MEDICARE ==
--- NOTE | 2021-02-25 14:13 | PE ---
Nuclear medicine PET/CT HISTORY: C 18.2, subsequent Patient received 10.7 mCi F-18 FDG intravenously in delayed scanning was performed from the skull bas e to the mid thighs. Localization and attenuation correction CT scan was performed. Correlation to prior nuclear medicine PET/CT dated 10/20/2018 Chest and neck: There are multiple areas of abnormal suspicious uptake. No cervical or supraclavicula r, no axillary adenopathy. Retrocaval pretracheal node shows a short axis measurement of 18 mm and pr eviously was not enlarged measuring only 6 to 7 mm in short axis with SUV now 8.8, there is a small p revascular node as on prior exam. Within the superior mediastinum and nonenlarged node shows an SUV o f 3, axial image 93, additional superior mediastinal node which is not enlarged on axial image 84 kiki ws an SUV 3.3. At the same level just deep to the clavicle on the left there is a focus of uptake, CONNOR V 3.1 which may correspond to a node which is not enlarged. Right hilar node shows an SUV 3.6. Subple ural nodular density in the right upper lobe measures only 2 mm, there is no pleural or pericardial e ffusion ABDOMEN: Abnormal uptake is present at the central portion of liver adjacent to the inferior vena cav a towards the dome of the liver, SUV 9.6, there abnormal portal nodes, SUV 11.1, retroperitoneal lindsey opathy also present, abnormal soft tissue into the inferior vena cava shows SUV 11.2. Along the retro peritoneum in the infrarenal location there is abnormal soft tissue, SUV 8.3. Smaller nodes towards t he aortic bifurcation, SUV 4.2. Right iliac node shows an SUV 3.4 but is not enlarged. Osseous structures: L2 vertebral body shows lucency which is developed in the interval, SUV 6.8. Low- attenuation within the liver may be due to hepatic steatosis. Postop changes are noted to the bowel. IMPRESSION: Metastatic disease has developed in the interval.
== END | disposition home or self-care (01) ==
LOC: RADPETMAIN 15:53
PROVIDERS: ATTEND Internal Medicine
DX: C78.6 Secondary malignant neoplasm of retroperitoneum and peritoneum (principal); R59.0 Localized enlarged lymph nodes; Z85.038 Personal history of other malignant neoplasm of large intestine
CPT/HCPCS: 78815; A9552